=== PATIENT | female | born 2000 | race Two or more races ===

== ENCOUNTER 2024-09-17 07:15 | Emergency (ER) | payer OTHER ==
[~2024-09-17] VITALS: Ht 167.6 cm; Wt 136.1 kg
[2024-09-17] MEDS ORDERED: FAMOTIDINE/PF 20 MG/2 ML VIAL ONE (08:24)
[2024-09-17] MEDS ORDERED: ONDANSETRON HCL 2 MG/ML VIAL ONE (08:24)
[2024-09-17] MEDS ORDERED: 0.9 % SODIUM CHLORIDE 1,000 ML IV STA (08:24)
[2024-09-17 08:48] LABS: BASO % 0.2 % (0.1-1.2); EOS # 0.86 (0.04-0.54); EOS % 7.3 % (0.7-7.0); HEMATOCRIT 43.3 % (34.1-44.9); HEMOGLOBIN 14.2 g/dL (11.2-15.7); LYMPH # 1.66 (1.18-3.74); MEAN CORPUSCULAR HEMOGLOBIN 28.6 pg (25.6-32.2); MONO # 1.27 (0.24-0.82); MONO % 10.7 % (4.7-12.5); NEUT # 7.94 (1.56-6.13); NEUT % 67.1 % (34.0-71.1); PLATELET COUNT 337 K/uL (163-369); RED BLOOD COUNT 4.96 M/uL (3.93-5.22); RED CELL DISTRIBUTION WIDTH 12.5 % (11.6-14.4)
[2024-09-17 09:17] LABS: CALCIUM 9.2 mg/dL (8.5-10.1); CREATININE SERUM 0.89 mg/dL (0.55-1.02); GFR 78.6; POTASSIUM 3.67 mEq/L (3.5-5.1)
[2024-09-17 09:24] LABS: PH,URINE 5.5 (5.0-8.0); URINE APPEARANCE Cloudy; URINE BILIRRUBIN Small (NEGATIVE); URINE BLOOD Negative; URINE COLOR Dark Yellow; URINE GLUCOSE Negative (NEGATIVE); URINE LEUKOCYTE Trace; URINE NITRATE Negative; URINE PROTEIN 30 (NEGATIVE)
[2024-09-17 09:28] LABS: URINE BACTERIA 3086.7 uL (0.0-1933); URINE EPITHELIAL CELLS 134.5 uL (0.0-38.8); URINE RBC 37.1 uL (0.0-20.8); URINE WBC 186.3 uL (0.0-23.2)
[2024-09-17 09:39] LABS: TYPE CELLS SQUAMOUS; URINE CAST 1.32 uL (0.0-1.40); URINE KETONE 80 (NEGATIVE); URINE MUCUS HEAVY
[2024-09-17] MEDS ORDERED: METRONIDAZOLE/SODIUM CHLORIDE 500 MG/100 ML PIGGYBACK IV ONE ×2 (09:39→09:45)
[2024-09-17] MEDS ORDERED: CIPROFLOXACIN IN 5 % DEXTROSE 400 MG/200 ML PIGGYBAG IV ONE ×2 (09:39→09:45)
== END 2024-09-17 13:50 | disposition home or self-care (01) ==
LOC: ER 07:15
PROVIDERS: Emergency Medicine
DX: K52.89 Other specified noninfective gastroenteritis and colitis (principal); Z91.018 Allergy to other foods

== ENCOUNTER → 2025-03-18 | Emergency (ER) | payer OTHER ==
[~2025-03-18] VITALS: Ht 175.3 cm; Wt 137.0 kg
[~2025-03-18] MED LIST: ACETAMINOPHEN 500 MG GEL..CAP PO ONE; DEXAMETHASONE SODIUM PHOSP/PF 10 MG/ML VIAL IV STA; DEXAMETHASONE SODIUM PHOSPHATE 4 MG/ML VIAL ONE; KETOROLAC TROMETHAMINE 60 MG VIAL IM ONE; KETOROLAC TROMETHAMINE 60 MG VIAL IM STA; LIDOCAINE HCL 1% 10ML VIAL ONE; ORPHENADRINE CITRATE 30 MG/ML AMPUL IM STA; ORPHENADRINE CITRATE 30 MG/ML AMPUL ONE
== END | disposition home or self-care (01) ==
LOC: ER 17:01
DX: G43.809 Other migraine, not intractable, without status migrainosus (principal); M54.2 Cervicalgia; M62.838 Other muscle spasm; Z91.018 Allergy to other foods